=== PATIENT | male | born 1965 | race Two or more races ===

== ENCOUNTER 2022-03-06 15:34 | Outpatient (REF) | payer BC, SELFPAY ==
[2022-03-06 17:17] LABS: Influenza A PCR POSITIVE (Negative); Influenza B PCR NEGATIVE (Negative); Resp Syncy Virus RNA Qual PCR NEGATIVE (Negative); SARS COV2 PCR INHOUSE NEGATIVE (Negative)
== END 2022-03-06 15:35 | disposition home or self-care (01) ==
LOC: HO.LAB 15:34
PROVIDERS: Visit Provider Internal Medicine
DX: Z20.822 Contact with and (suspected) exposure to COVID-19 (principal); R09.89 Other specified symptoms and signs involving the circulatory and respiratory systems
CPT/HCPCS: 0241U

== ENCOUNTER 2023-05-06 13:39 | Outpatient (AMB) | payer OTHER, SELFPAY ==
--- NOTE | 2023-05-06 14:55 | MHC.OFFWIV ---
Intake Vital Signs 05/06/23 15:00 Height 5 ft 9 in Weight 199 lb BMI 29.4 BP 160/100 H Blood Pressure Location Lt brachial Position Sitting Pulse 60 Pulse Source Pulse Oximeter Pulse Oximetry (%) 97 Oxygen Delivery Method Room Air Intake Visit Reasons: EP LT leg swelling Intake Note: pt is here today for lft foot swelling started saturday Patient Tobacco Use Status: Never used Tobacco Allergies No Known Allergies Allergy (Verified 05/08/23 05:30) Medication List - Last Reconciled 05/08/23 by Alfonso Guzman MD prednisone 40 mg (2 x 20 mg) PO DAILY 3 days Do you need a note to return to daycare/school/sports/work: Yes HPI EP LT leg swelling HPI Details 57-year-old male presents to the office for a sick visit. Patient is complaining of swelling over the left foot, especially around the great toe. He is able to walk without difficulty. Bending of the toe is painful. Able to function and do activities of daily living. PFSH Social History Patient Tobacco Use Status: Never used Tobacco Physical Exam Vital Signs: Last Vital Signs Pulse 60 05/06/23 15:00 BP 160/100 H 05/06/23 15:00 Pulse Ox 97 05/06/23 15:00 Oxygen Delivery Method Room Air 05/06/23 15:00 BMI result Body Mass Index 29.4 Extrem Other: Left foot: Minimal erythema over the MTP joint. Minimal discomfort on flexion of the great toe. Assessment & Plan Assessment & Plan (1) Gout: Code(s): M10.9 - Gout, unspecified Plan: Condition will be treated with prednisone. If symptoms do not improve to follow-up here. Medications: New prednisone 40 mg (2 x 20 mg) PO DAILY 6 tabs 0RF 3 days Coding Level of Care Code Est Pt Level 3 (40735) Diagnoses Gout M10.9
[2023-05-06 15:00] VITALS: BP 160/100; PULSE 60; O2SAT 97; BMI 29.4
== END 2023-05-06 16:53 | disposition home or self-care (01) ==
PROVIDERS: Visit Provider Internal Medicine
DX: M10.9 Gout, unspecified (principal)
CPT/HCPCS: 99213

== ENCOUNTER 2024-03-18 09:24 | Outpatient (REF) | payer OTHER, SELFPAY ==
--- NOTE | ~2024-03-18 | XR_ITS ---
EXAMINATION: XR ELBOW, LEFT CLINICAL INFORMATION: M25.512 - Pain in left shoulder COMPARISON: None available. TECHNIQUE: AP, lateral, and oblique views of the left elbow. FINDINGS: Diffuse osteopenia. No fracture, dislocation or destructive lesion or joint effusion. XR/XR elbow LT min 3V IMPRESSION: Negative Electronically signed by: Dwayne Palencia MD 03/18/2024 12:24 PM EST
--- NOTE | ~2024-03-18 | XR_ITS ---
EXAMINATION: XR SHOULDER, LEFT CLINICAL INFORMATION: M25.512 - Pain in left shoulder COMPARISON: None available. TECHNIQUE: AP external rotation, Grashey, scapular Y, and axillary views of the left shoulder. FINDINGS: There is moderate narrowing of the left glenohumeral joint and advanced narrowing of the left AC joint in a pattern consistent with arthritic change. No fracture, dislocation or destructive process. XR/XR shoulder LT min 2V IMPRESSION: Degenerative change. No fracture. Electronically signed by: Dwayne Palencia MD 03/18/2024 01:57 PM TEJAL HWANG
--- NOTE | ~2024-03-18 | XR_ITS ---
EXAMINATION: XR WRIST, LEFT CLINICAL INFORMATION: M25.532 - Pain in left wrist COMPARISON: None available. TECHNIQUE: PA, lateral, and oblique views of the left wrist. FINDINGS: No fracture, dislocation or destructive process. No joint effusion. XR/XR wrist LT w scaphoid IMPRESSION: Normal left wrist. Electronically signed by: Dwayne Palencia MD 03/18/2024 01:54 PM EST
== END 2024-03-18 09:25 | disposition home or self-care (01) ==
LOC: HO.HMGCX 09:24
PROVIDERS: Visit Provider Physician Assistant
DX: M25.512 Pain in left shoulder (principal); M25.522 Pain in left elbow; M25.532 Pain in left wrist; S46.212A Strain of muscle, fascia and tendon of other parts of biceps, left arm, initial encounter; W11.XXXA Fall on and from ladder, initial encounter; Y93.9 Activity, unspecified; Y92.9 Unspecified place or not applicable; Y99.0 Civilian activity done for income or pay
CPT/HCPCS: 73030; 73080; 73110; 96372; 99202; J1885

== ENCOUNTER 2024-03-18 09:24 | Outpatient (AMB) | payer OTHER, SELFPAY ==
[2024-03-18 09:54] VITALS: BP 132/86; PULSE 77; TEMP 36.3; O2SAT 99; BMI 30.6
--- NOTE | 2024-03-18 09:54 | AM.OFFWIN_ITS ---
Intake Vital Signs 03/18/24 09:54 Height 5 ft 9 in Weight 207 lb 2 oz BMI 30.6 BP 132/86 Blood Pressure Location Rt brachial Position Sitting Pulse 77 Pulse Source Pulse Oximeter Temp 97.4 F Temp Source Temporal Artery Scan Pulse Oximetry (%) 99 Oxygen Delivery Method Room Air Intake Visit Reasons: EP Pain on LT arm & shoulder due to a fall Intake Note: Pt presents to the office today for c/o left arm and shoulder pain after he fell off a small ladder and fell on his left side at work today. Pt states he also has a burning sensation in his upper arm and has numbness and tingling from his arm to his fingers. Patient Tobacco Use Status: Never used Tobacco Allergies No Known Allergies Allergy (Verified 03/18/24 09:57) HPI HPI Comments History of Present Illness Details History of Present Illness The patient is a 58-year-old male presenting with a left shoulder, elbow, and wrist injury. 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 While on a small stepladder, the patient attempted to catch a slipping box, lost his balance, and fell onto the left shoulder. He describes a burning pain in the shoulder extending down the arm, accompanied by tingling. The patient is unable to lower the arm fully due to pain and can only raise it to shoulder height before experiencing increased burning sensation. The elbow is noted to be bruised with pain hindering full extension. The wrist has some tenderness and tingling, especially when moved in certain directions. The patient attempted to break the fall with the hand, which may have contributed to the wrist pain. No medications such as Aleve or naproxen have been taken since the injury. Physical Exam General: Cooperative, healthy appearing, comfortable, no acute distress and well developed Orientation: Patient oriented x3 Limitations: Limited range of motion in left shoulder and elbow due to pain Head: Normal to inspection Ears: Hearing grossly normal bilaterally Nose: Normal Nxternal nose present Face and sinus: ormal facial exam Eyes: Appearance normal, both eyes and all related structures Neck: Normal visual inspection and Yes full ROM Respiratory: Normal respiratory effort and able to speak in complete sentences. Clear to auscultation bilaterally Cardiovascular: Regular rate and rhythm. Normal S1 and S2 Skin: No rashes or lesions noted Neuro: Patient oriented x3 Extremities: Bruising and pain noted in left shoulder, elbow, and wrist. Limited range of motion in left shoulder and elbow. Tingling and numbness in fingers due to inflammation. [facility] Social History Patient Tobacco Use Status: Never used Tobacco Review of Systems Const All systems reviewed & are unremarkable except as noted in HPI and below Physical Exam Vital Signs: Last Vital Signs Temp 97.4 F 03/18/24 09:54 Pulse 77 03/18/24 09:54 BP 132/86 03/18/24 09:54 Pulse Ox 99 03/18/24 09:54 Oxygen Delivery Method Room Air 03/18/24 09:54 BMI result Body Mass Index 30.6 Office Meds ketorolac 30 mg/mL (1 mL) injection solution Performing Provider: Katie Anderson PA-C Performing Location: [facility] Administered by: Dai Vasquez RN on 03/18/24 10:51 Dose Route Admin Location Dispensed Lot Number Expiration Date [facility] [employer] 30 mg IM right gluteal 1 mL [id number] 10/06/24 [id number] [employer] Assessment & Plan Assessment & Plan (1) Left shoulder pain: Code(s): M25.512 - Pain in left shoulder Qualifiers: Chronicity: acute Qualified Code(s): M25.512 - Pain in left shoulder Plan: see below (2) Left elbow pain: Code(s): M25.522 - Pain in left elbow Plan: see below (3) Left wrist pain: Code(s): M25.532 - Pain in left wrist Plan: see below (4) Fall on and from ladder causing accidental injury: Code(s): W11.XXXA - Fall on and from ladder, initial encounter Qualifiers: Encounter type: initial encounter Qualified Code(s): W11.XXXA - Fall on and from ladder, initial encounter Plan: - Performed x-rays of the left shoulder, left elbow, and left wrist to assess for fractures or dislocations. Stat read of the elbow showed nothing acute, normal x-ray. Left biceps appears to be torn or ruptured, discussed with orthopedics IVETH Griffin, she states there is no indication for surgical intervention. I will send a referral to Orthopedics if his pain does not improve over the next couple of weeks. My interpretation of the shoulder and wrist x-rays are that they look completely normal with no acute fracture or dislocation. - Placed patient?s arm in a sling for comfort, instructed not to be used for more than 5-7 days as he would be at risk of frozen shoulder. - Advise monitoring the condition closely and follow up with orthopedics if no improvement in his pain over the next couple of weeks. - Discuss the use of [id number] pain relief, such as Aleve or naproxen, if appropriate for the patient's allergy and tolerance profile. - Gave patient IM Toradol in office for relief of pain Patient was informed and verbally consented to the use of an ambient scribe for clinic note documentation during this visit. (5) Biceps rupture, proximal: Code(s): S46.119A - Strain of muscle, fascia and tendon of long head of biceps, unspecified arm, initial encounter Qualifiers: Encounter type: initial encounter Laterality: left Qualified Code(s): S46.212A - Strain of muscle, fascia and tendon of other parts of biceps, left arm, initial encounter Plan: - Performed x-rays of the left shoulder, left elbow, and left wrist to assess for fractures or dislocations. Stat read of the elbow showed nothing acute, normal x-ray. Left biceps appears to be torn or ruptured, discussed with orthopedics IVETH Griffin, she states there is no indication for surgical intervention. I will send a referral to Orthopedics if his pain does not improve over the next couple of weeks. My interpretation of the shoulder and wrist x-rays are that they look completely normal with no acute fracture or dislocation. - Placed patient?s arm in a sling for comfort, instructed not to be used for more than 5-7 days as he would be at risk of frozen shoulder. - Advise monitoring the condition closely and follow up with orthopedics if no improvement in his pain over the next couple of weeks. - Discuss the use of vlix-fgj-pikkhns pain relief, such as Aleve or naproxen, if appropriate for the patient's allergy and tolerance profile. - Gave patient IM Toradol in office for relief of pain Orders: Orders XR shoulder LT min 2V Today M25.512 - Pain in left shoulder AMB Ketorolac Injection Today M25.512 - Pain in left shoulder, M25.522 - Pain in left elbow, M25.532 - Pain in left wrist XR elbow LT min 3V Today M25.512 - Pain in left shoulder, M25.522 - Pain in left elbow XR wrist LT w scaphoid Today M25.532 - Pain in left wrist Referrals Orthopedics Referral M25.512 - Pain in left shoulder, M25.522 - Pain in left elbow, M25.532 - Pain in left wrist, S46.119A - Strain of muscle, fascia and tendon of long head of biceps, unspecified arm, initial encounter, W11.XXXA - Fall on and from ladder, initial encounter Coding Level of Care Code New Pt Level 5 (79926) Diagnoses Acute pain of left shoulder M25.512 Chronicity: acute Left elbow pain M25.522 Left wrist pain M25.532 Fall from ladder, initial encounter W11.XXXA Encounter type: initial encounter Rupture of left proximal biceps tendon, initial encounter S46.212A Encounter type: initial encounter Laterality: left
== END 2024-03-18 11:58 | disposition home or self-care (01) ==
PROVIDERS: Visit Provider Physician Assistant
DX: S46.212A Strain of muscle, fascia and tendon of other parts of biceps, left arm, initial encounter (principal); M25.512 Pain in left shoulder; Z04.2 Encounter for examination and observation following work accident; M25.522 Pain in left elbow; W11.XXXA Fall on and from ladder, initial encounter; M25.532 Pain in left wrist

== ENCOUNTER 2024-03-19 10:56 | Outpatient (AMB) | payer OTHER, SELFPAY ==
--- NOTE | 2024-03-19 11:04 | A.OFFVIS_ITS ---
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 Patient reports that he was climbing a small ladder when he fell, landing on his left side. He was seen at [facility] [place] [facility] that same day where x-rays were obtained and he was referred to orthopedics for a muscle strain. He has a burning sensation in his bicep area. Intermittent numbness and tingling in his arm and hand. Limited ROM. Finds very little to no relief with taking ibuprofen. 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 Patient states he was climbing a small ladder when he fell, landing on his left side. He was seen at [facility] [place] [facility] that same day where x-rays were obtained and he was referred to orthopedics for a muscle strain. He has a burning sensation in his bicep area. Intermittent numbness and tingling in his arm and hand. Limited ROM. Finds very little to no relief with taking ibuprofen. [facility] Social History (Updated 03/19/24 @ 11:32 by CHRISTI Foster) Patient Tobacco Use Status: Never used Tobacco Current occupational status: employed Current occupation: [employer], right hand dominant Review of Systems Const All systems reviewed & are unremarkable except as noted in HPI and below Physical Exam Vital Signs: BMI result Body Mass Index 30.6 Const General: cooperative and no acute distress Orientation/consciousness: patient oriented x3 Resp Effort & Inspection: normal respiratory effort and able to speak in complete sentences Cardio Peripheral pulses: Peripheral pulses 2+ throughout Neuro General: patient oriented x3 Extrem Other: Left shoulder normal to inspection. Tenderness over the bicipital groove, no ecchymosis. There appears to be a pop eye deformity, which is similar to the cotralateral side. Distal bicep tendon intact. No pain along the elbow or forearm. NVI. Results Reviewed Results Reviewed: XR shoulder LT min 2V IMPRESSION: Degenerative change. No fracture. Assessment & Plan Assessment & Plan (1) Biceps rupture, proximal: Code(s): S46.119A - Strain of muscle, fascia and tendon of long head of biceps, unspecified arm, initial encounter Category: Medical Qualifiers: Encounter type: initial encounter Laterality: left Qualified Code(s): S46.212A - Strain of muscle, fascia and tendon of other parts of biceps, left arm, initial encounter Plan: I recommend he discontinue the use of the sling unless he is out of the house for protection. He should work on removing the sling and letting his arm dangle at his side. Working on elbow range of motion. Pendulums. I did order physical therapy to begin in 2 weeks for scapular stabilization and gentle range of motion. I would like to see him back in 3 weeks for re-evaluation. He will remain out of work until his follow-up, sooner if needed. Orders: Orders PT Evaluation and Treatment Today S46.212A - Strain of muscle, fascia and tendon of other parts of biceps, left arm, initial encounter Coding Level of Care Code New Pt Level 3 (94408) Complex EM visit Add On G2211 Diagnoses Rupture of left proximal biceps tendon, initial encounter S46.212A Encounter type: initial encounter Laterality: left
[2024-03-19 11:06] VITALS: BMI 30.6
== END 2024-03-19 11:56 | disposition home or self-care (01) ==
PROVIDERS: Visit Provider Physician Assistant
DX: S46.212A Strain of muscle, fascia and tendon of other parts of biceps, left arm, initial encounter (principal)
CPT/HCPCS: 99203; G2211

== ENCOUNTER → 2024-03-19 10:56 | Outpatient (BNVA) | payer OTHER, SELFPAY | PROVIDERS: Visit Provider Physician Assistant | DX: S46.212A Strain of muscle, fascia and tendon of other parts of biceps, left arm, initial encounter (principal); W11.XXXA Fall on and from ladder, initial encounter; Y93.H3 Activity, building and construction; Y92.9 Unspecified place or not applicable; Y99.0 Civilian activity done for income or pay | CPT/HCPCS: 99202 ==

== ENCOUNTER 2024-04-09 13:59 | Outpatient (AMB) | payer OTHER, SELFPAY ==
--- NOTE | 2024-04-09 14:20 | A.OFFVIS_ITS ---
Intake Visit Reasons: OV- WC LT shoulder muscle strain s/p fall 03/18/24 Intake Note: Yan a 58 year old male who presents today in a arm sling for a evaluation of left shoulder injury, DOI 03/18/24. Patient reports having improvement in his pain and ROM. States having soreness in his bicep area. He has not started PT. He would like to discuss work status. Allergies No Known Allergies Allergy (Verified 04/09/24 14:21) Medication List - Last Reconciled 04/09/24 by Verito Luther PA-C allopurinol 100 mg PO DAILY losartan 50 mg PO DAILY prednisone 40 mg (2 x 20 mg) PO DAILY 3 days HPI HPI OV- WC LT shoulder muscle strain s/p fall 03/18/24: Details: 58-year-old gentleman returns to the office today for a follow-up left shoulder proximal biceps tendon rupture status post work injury on 03/18/2024. He has not yet scheduled a physical therapy appointment. Does have some improvement with pain and range of motion but he continues to have significant limitations with strength. He states that when he tries to bring his left arm overhead he needs to compensate and keep his bicep close to his body in order to support the arm. He remains out of work. [facility] Social History Patient Tobacco Use Status: Never used Tobacco Current occupational status: employed Current occupation: [email or web address], right hand dominant Review of Systems Const All systems reviewed & are unremarkable except as noted in HPI and below Physical Exam Extrem Other: Left shoulder normal to inspection. There is a palpable muscle defect along the proximal biceps tendon with a Anibal deformity. Forward flexion to approximately 170 degrees. External rotation to 80 degrees. Internal rotation to S1. He has significant weakness and accessory muscle use with rotator cuff strength testing on the left when compared to contralateral side. Assessment & Plan Assessment & Plan (1) Biceps rupture, proximal: Code(s): S46.119A - Strain of muscle, fascia and tendon of long head of biceps, unspeci fied arm, initial encounter Category: Medical Qualifiers: Encounter type: initial encounter Laterality: left Qualified Code(s): S46.212A - Strain of muscle, fascia and tendon of other parts of biceps, left arm, initial encounter Plan: I strongly encouraged him to follow up with physical therapy to book an appointment to work on strengthening of the rotator cuff and scapular region. He will return to work on April 21 with limitations such as no lifting overhead and no pushing pulling or carrying greater than 5 lb. See me back in 6 weeks for re-evaluation, sooner if needed. Coding Level of Care Code Est Pt Level 3 (46551) Complex EM visit Add On G2211 Diagnoses Rupture of left proximal biceps tendon, initial encounter S46.212A Encounter type: initial encounter Laterality: left
== END 2024-04-09 14:40 | disposition home or self-care (01) ==
PROVIDERS: Visit Provider Physician Assistant
DX: S46.212A Strain of muscle, fascia and tendon of other parts of biceps, left arm, initial encounter (principal)
CPT/HCPCS: 99213; G2211

== ENCOUNTER → 2024-04-09 13:59 | Outpatient (BNVA) | payer OTHER, SELFPAY | PROVIDERS: Visit Provider Physician Assistant | DX: S46.212D Strain of muscle, fascia and tendon of other parts of biceps, left arm, subsequent encounter (principal) | CPT/HCPCS: 99212 ==

== ENCOUNTER 2024-05-21 12:29 | Outpatient (AMB) | payer OTHER, SELFPAY ==
[2024-05-21 12:33] VITALS: BMI 30.6
--- NOTE | 2024-05-21 12:33 | MHC.OFFVIS ---
Vital Signs 05/21/24 12:33 Height 5 ft 9 in Weight 207 lb BMI 30.6 Intake Visit Reasons: OV - left proximal biceps tendon, DOI 03/18/24 Intake Note: Yan is a 58 year old right hand dominant who presents today for a follow up for his left proximal biceps tendon, DOI 03/18/24. Patient reports he is doing well. He has completed his P.T sessions, states he is still a little limited with his ROM and struggles with over head lifting. Allergies No Known Allergies Allergy (Verified 05/21/24 12:39) Medication List - Last Reconciled 05/21/24 by Verito Luther PA-C allopurinol 100 mg PO DAILY losartan 50 mg PO DAILY prednisone 40 mg (2 x 20 mg) PO DAILY 3 days HPI HPI OV - left proximal biceps tendon, DOI 03/18/24: Details: 58-year-old gentleman returns to the office today follow-up left proximal biceps tendon rupture on 03/18/2024. He continues to work with physical therapy and is improving however continues to have some limitation with overhead reaching. He has continued working with light duty restrictions. [facility] Social History Patient Tobacco Use Status: Never used Tobacco Current occupational status: employed Current occupation: [employer], right hand dominant Review of Systems Const All systems reviewed & are unremarkable except as noted in HPI and below Physical Exam Vital Signs: BMI result Body Mass Index 30.6 Extrem Other: Left shoulder normal to inspection. There is a palpable muscle defect along the proximal biceps tendon with a Anibal deformity. Forward flexion to approximately 170 degrees. External rotation to 90 degrees. Internal rotation to S1. He is able to activate rotator cuff strength. Neurovascularly intact. Assessment & Plan Assessment & Plan (1) Biceps rupture, proximal: Code(s): S46.119A - Strain of muscle, fascia and tendon of long head of biceps, unspecified arm, initial encounter Category: Medical Qualifiers: Encounter type: initial encounter Laterality: left Qualified Code(s): S46.212A - Strain of muscle, fascia and tendon of other parts of biceps, left arm, initial encounter Plan: He will continue to work with his home exercise program for strengthening exercises and increase activities as tolerated. He will continue working with limitations only with overhead overhead reaching and lifting at work for the next 4 weeks then he can resume regular duty no restrictions. He will follow up if symptoms arise or there is any concerns. Coding Level of Care Code Est Pt Level 3 (97784) Complex EM visit Add On G2211 Diagnoses Rupture of left proximal biceps tendon, initial encounter S46.212A Encounter type: initial encounter Laterality: left
--- OUTSIDE RECORDS SUMMARY | 2024-05-21 12:38 | XMS_ITS | Clinical Summary ---
Author Organization [facility] ity Address [address] [place] [address] Care Team Providers Care Center Medical Director Name Role Phone Brando Robles MD Primary Care Provider [phone] Allergies No known active allergies Medications losartan (COZAAR) 50 mg tablet Take 1 Tablet by mouth daily. 4 Active meloxicam (MOBIC) 15 mg tablet Take 1 Tablet by mouth daily. Active predniSONE (DELTASONE) 20 mg tablet Take 1 Tablet by mouth 2 times daily. Active allopurinoL (ZYLOPRIM) 100 mg tablet TAKE 1 TABLET BY MOUTH EVERY DAY 90 tablet 1 5 Active allopurinoL (ZYLOPRIM) 100 mg tablet Take 1 Tablet by mouth daily. 4 05/21/19 25 Discontinued Active Problems Problem Noted Date Diagnosed Date Gout 05/22/2023 Immunizations Name Administration Dates Next Due Influenza Quadravalent, MDCK , 0.5ml, preservative free (Flucelvax) 6mo and older 05/22/2023 Medical History Medical History Date Comments Gout DX:Gout Family History Medical History Relation Name Comments Diabetes Brother 1 Diabetes Brother 2 Alzheimer's disease Mother Diabetes Mother Relation Name Status Comments Brother 1 Brother 2 Alive Mother Social History Tobacco Use Types Packs/Day Years Used Date Smoking Tobacco: Former Cigarettes Q uit: 04/08/2013 Smokeless Tobacco: Never Alcohol Use Standard Drinks/Week Comments Yes 2 (1 standard drink = 0.6 oz pur e alcohol) Sex and Gender Information Value Date Recorded Sex Assigned at Not on file Legal Sex Male 5:08 PM EST Gender Identity Not on file Sexual Orientation Not on file Obstetrics History Last Filed Vital Signs Vital Sign Reading Time Taken Comments Blood Pressure 154/80 11/26/2023 8:24 AM EDT Sitting L Arm Pulse 50 11/26/2023 8:24 AM EDT Temperature - - Respiratory Rate - - Oxygen Saturation - - Inhaled Oxygen Concentration - - Weight 91.7 kg (202 lb 3.2 oz) 11/26/2023 8:24 AM EDT Height 175.3 cm (5' 9 ) 06/04/2023 9:24 AM EST Body Mass Index 29.86 06/04/2023 9:24 AM EST Plan of Treatment Upcoming Encounters Date Type Department Care Team (Late st Contact Info) Description 06/29/2024 3:15 PM EDT Telemedicine Internal Medicine - [place] [address] [id number] Brando Robles MD [address] [address] 11/16/2024 2:00 PM EDT Office Visit Internal Medicine - [place] [address] [phone] Brando Robles MD [address] [id number] Health Maintenance Due Date Last Done Comments DTaP,Tdap,and Td Vaccines (1 - Tdap) 1984 Hepatitis B Vaccines (1 of 3 - 19+ 3-dose series) 1984 Pneumococcal Vaccine: 50+ Ye ars (1 of 1 - PCV) 09/24/2015 Zoster Vaccines (1 of 2) 09/24/2015 Colorectal Cancer Screening: Colonoscopy 03/07/2022 Depression Screening 03/07/2022 HIV Screening 03/07/2022 Hepatitis C Screening 03/07/2022 Social Influencers of Health Screening 03/07/2022 COVID-19 Vaccine (1 - 2023-2 5 season) 2023 Influenza Vaccine (#1) 2023 05/22/2023 Hypertension/CHF/CAD Annual BMP Blood Test 06/04/2024 06/04/2023 Cholesterol Screening (Lipid Panel) 06/04/2028 06/04/2023 HIB Vaccines Aged Out No longer eligi ble based on patient's age to complete this topic HPV Vaccines Aged Out No longer eligi ble based on patient's age to complete this topic Hepatitis A Vaccines Aged Out No long er eligible based on patient's age to complete this topic IPV Vaccines Aged Out No longer eligi ble based on patient's age to complete this topic MMR Vaccines Aged Out No longer eligi ble based on patient's age to complete this topic Meningococcal ACWY Vaccine Aged Out N o longer eligible based on patient's age to complete this topic Meningococcal B Vacine Aged Out No lo nger eligible based on patient's age to complete this topic Pneumococcal Vaccine: Pediat rics (0 to 5 Years) and At-Risk Patients (6 to 64 Years) Aged Out No longer eligi ble based on patient's age to complete this topic RSV Immunization Patients Un zenon 20 months Aged Out No longer eligible b ased on patient's age to complete this topic Varicella Vaccines Aged Out No longer eligible based on patient's age to complete this topic Procedures Procedure Name Priority Date/Time Associated Diagnosis Comments ANNUAL BMP BLOOD TEST Routine 06/04/2023 LIPID PANEL Routine 06/04/2023 from Last 3 Months or Most Recently Relevant to Health Maintenance Results * Annual BMP Blood Test (06/04/2023) Pathologist [facility] Annual BMP Blood Test abstracted Historical Provider HEALTH MAINTENANCE Final Result * Lipid panel (06/04/2023) Pathologist [facility] LDL/HDL Ratio 2 0 - 4 Triglycerides 67 0 - 150 mg/dL Cholesterol 165 0 - 200 mg/dL HDL 73 >=40 mg/dL LDL Cholesterol 79 0 - 100 mg/dL Blood Venous blood specimen / Unknown Historical Provider LAB BLOOD ORDERABLES Ava l Result from Last 3 Months or Most Recently Relevant to Health Maintenance Insurance [employer] Care Teams Center Medical Director Relationship Specialty Start Date End Date Brando Robles MD [address] [place] [address] PCP - General Internal Medicine 05/19/21
== END 2024-05-21 13:02 | disposition home or self-care (01) ==
PROVIDERS: Visit Provider Physician Assistant
DX: S46.212A Strain of muscle, fascia and tendon of other parts of biceps, left arm, initial encounter (principal)
CPT/HCPCS: 99213

== ENCOUNTER → 2024-05-21 12:29 | Outpatient (BNVA) | payer OTHER, SELFPAY | PROVIDERS: Visit Provider Physician Assistant | DX: S46.212D Strain of muscle, fascia and tendon of other parts of biceps, left arm, subsequent encounter (principal) | CPT/HCPCS: 99212 ==

== ENCOUNTER 2024-06-30 06:00 | Outpatient (RCR) | payer OTHER, SELFPAY ==
--- NOTE | 2024-04-14 08:52 | MHC.PT.EP ---
[facility] [place] Office [place] [facility] [place] Office [address] Tyron Littlejohn [address] [phone] F: [phone] F: [phone] F: [phone] F: [phone] Physical Therapy Plan of Care Date of Evaluation: 04/14/24 Date of Surgery: Diagnosis: strain of muscle, fascia and tendon of left arm. Assessment: Patient is a 58 year old R handed male who presents with s/s consistent with L shoulder pain, bicep tear, strain of muscle, fascia and tendon of L arm. 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 Patient past medical history is unremarkable. Current impairments include pain, posture, ROM, strength, activity tolerance and functional mobility. Functional limitations include decreased ability to reach, lift, sleep, carry, push, pull and prepare food. Patient is motivated with good rehab potential. Skilled PT will address impairments and functional limitations in order to achieve goals. 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 Manual therapy to restore motion and function. Therapeutic exercise to improve strength and flexibility. Neuromuscular re-education for posture and balance. Therapeutic activities to return to functional activities of daily living. Electronically signed by: Travis Benz, PT Please sign and return to therapist. Thank you for your referral.
--- NOTE | 2024-07-01 14:08 | MHC.PT.DC ---
[facility] [place] Office [place] Office [place] Office [address] Tyron Littlejohn [address] [phone] F: [phone] F: [phone] F: [phone] F: [phone] Physical Therapy Discharge Report Diagnosis: strain of muscle, fascia and tendon of left arm. Date of Surgery: Date of Evaluation: 04/14/24 Date of Discharge: 06/30/24 Treatments to Date: 17 Cancellations to Date: No Shows to Date: Discharge Status: Achieved Goals Improved Function Independent with HEP Discharge Summary: 06/30/24: I with HEP. SPADI goal met. Pain goal met. Strength goal progressed towards or met. ROM with very minor impairments and much improved since start of PT. Pt has HEP and is appropriate to d/c to HEP at this time. 06/24/24: pt continues to be challenged but progresses well on current program. continue to progress as tolerated 2 more visits then d/c to HEP. 06/23/24: pt does state how many minutes he wants to do each day - possibly to get out in time for work. continue to progress as tolerated until d/c. 06/09/24: pt has been feeling better overall with skilled PT. we have been able to progress strength without any setbacks. 06/03/24: pt progressing well still. ER WNL. IR WNL. we will continue to progress strength as tolerated. 06/02/24: pt progressing well. ROM improving. strength improving. pain is less. continue to progress as tolerated. 05/27/24: pt progressing well overall. we have been able to progress strength. Improved strength with overhead activities. 05/13/24: progressing well with ROM and strength. continue to progress as tolerated with lifting activities. 05/12/24: pt progressing well with skilled PT. Improved ROM and strength. Reduced pain and improved activity tolerance. He has been compliant and motivated throughout the course of skilled PT. 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 We will continue to address these and progress lifting activities to promote optimal oriental orthodox of PLOF. We will continue 2x/week for 4 more weeks in order to pursue this. 05/06/24: s/s tend to remain in bicep area. ROM improving. 05/05/24: pt progressing with strength and ROM. however, we had to modify slightly due to significant gout flare up resulting in reduced tolerance to standing. Rest given as needed. 04/29/24: pt progressing well. still with some burning but progressing ROM and strength as tolerated. 04/28/24: pt progressing well. difficulty noted with ER and abduction still. continue to progress as tolerated. 04/23/24: progressing with strength and ROM ex. pt with some fatigue and burning noted during and after. CP to finish. We will continue to progress as tolerated with function related ex. 04/21; Pt sh fatigued after exs and c/o burning with A exs. Pt RBTW tomorrow. 04/17/24: pt progressing well with skilled PT. no adverse reactions. updated HEP. assess response and progress as tolerated. Patient is a 58 year old R handed male who presents with s/s consistent with L shoulder pain, bicep tear, strain of muscle, fascia and tendon of L arm. 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 Patient past medical history is unremarkable. Current impairments include pain, posture, ROM, strength, activity tolerance and functional mobility. Functional limitations include decreased ability to reach, lift, sleep, carry, push, pull and prepare food. Patient is motivated with good rehab potential. Skilled PT will address impairments and functional limitations in order to achieve goals. Electronically signed by: Travis Benz, PT Please sign and return to therapist. Thank you for your referral.
== END 2024-07-01 14:09 | disposition home or self-care (01) ==
LOC: HO.PTCHIC 06:00
PROVIDERS: Visit Provider Physician Assistant
DX: S46.212D Strain of muscle, fascia and tendon of other parts of biceps, left arm, subsequent encounter (principal)
CPT/HCPCS: 97110; 97161